=== PATIENT | male | born 1995 | race Caucasian/White ===

== ENCOUNTER 2024-05-12 12:34 | Emergency (ER) | payer MEDICAID ==
[~2024-05-12] VITALS: Ht 167.6 cm; Wt 81.6 kg
[~2024-05-12 12:34] MED LIST: AMOX-520 PO; IBUP-1971 PO
[2024-05-12 13:01] VITALS: BP_SYST 125; PULSE 82; RESP 18; TEMP 97.6; O2SAT 100
== END 2024-05-12 15:10 | disposition left against medical advice (07) ==
LOC: SED 12:34
DX: R21 Rash and other nonspecific skin eruption (principal); Z79.2 Long term (current) use of antibiotics; Z79.899 Other long term (current) drug therapy; Z53.21 Procedure and treatment not carried out due to patient leaving prior to being seen by health care provider

== ENCOUNTER 2024-05-12 19:41 | Emergency (ER) | payer MEDICAID ==
[~2024-05-12] VITALS: Ht 167.6 cm; Wt 83.9 kg
[2024-05-12 20:15] VITALS: BP_SYST 122; PULSE 77; RESP 18; TEMP 98; O2SAT 98
[2024-05-12 22:27] VITALS: BP_SYST 122; PULSE 77; RESP 18; TEMP 98; O2SAT 98
== END 2024-05-12 22:37 | disposition home or self-care (01) ==
LOC: SED 19:41
DX: L71.9 Rosacea, unspecified (principal); R21 Rash and other nonspecific skin eruption
CPT/HCPCS: 99281